=== PATIENT | male | born 1990 | race Caucasian/White ===

== ENCOUNTER 2019-01-19 02:18 | Emergency (ER) | payer SELFPAY ==
[~2019-01-19] VITALS: Ht 170.2 cm; Wt 89.9 kg
[2019-01-19 02:31] VITALS: Ht 170.2 cm; Wt 89.9 kg
[2019-01-19] MEDS ORDERED: LIDOCAINE 1% (MDV) 10 ML INJ INJ STA (03:15)
[2019-01-19] MEDS ORDERED: DIPHTH/TET/ACEL PERTUSS (ADULT) 0.5 ML VIAL IM* ONE (03:30)
[2019-01-19] MEDS ORDERED: IBUPROFEN 600 MG TAB PO ONE (03:30)
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
[2019-01-19] MEDS ORDERED: MECLIZINE 12.5 MG TAB PO ONE (06:00)
[2019-01-19 09:56] VITALS: BP 118/66; PULSE 75; RESP 19
== END 2019-01-19 09:57 | disposition home or self-care (01) ==
LOC: E/R 02:18
DX: F10.920 Alcohol use, unspecified with intoxication, uncomplicated (principal); Y00.XXXA Assault by blunt object, initial encounter; Z23 Encounter for immunization
CPT/HCPCS: 70450; 70486; 90471; 90715